=== PATIENT | male | born 1995 | race African-American/Black ===

== ENCOUNTER 2024-10-02 08:26 | Emergency (ER) | payer MEDICAID ==
[~2024-10-02] VITALS: Ht 170.2 cm; Wt 73.5 kg
[2024-10-02 08:58] VITALS: BP 143/95; PULSE 97; RESP 16; TEMP 98.5; O2SAT 98
[2024-10-02] MEDS ORDERED: ACET-1304 PO (11:26)
[2024-10-02] MEDS ORDERED: AUG875T PO (11:26)
[2024-10-02] MEDS ORDERED: IBUP-1456 PO (11:26)
[2024-10-02] MEDS: LIDOCAINE VISCOUS 2% 15ML UD PO ONE (11:32)
[2024-10-02] MEDS: PENICILLIN G BENZ 1,200,000 UNITS/2 ML SYRG IM ONE (11:32)
[2024-10-02] MEDS: IBUPROFEN 800 MG TAB PO ONE (11:32)
--- NOTE | 2024-10-02 11:55 | ED.PDOC ---
History of Present Illness HPI Comments 29 y/o M presents with c/o throat pain for the past 3x days today. Patient also reports subjective fever today. He reports similar symptoms in the past, treated with antibiotics which resolved the issue. He denies having any difficulty breathing or swallowing, cough, congestion, nausea, vomiting, chills, or other associated symptoms or modifiers at this time. Chief Complaint: Sore Throat Time Seen by MD: 10:30 Reviewed Notes: Nurses Notes, Medications, Allergies Allergies: Coded Allergies: NO KNOWN ALLERGIES (Unverified , 10/02/24) Home Meds Active Scripts Acetaminophen (Tylenol Extra Strength) 500 Mg Tab, 1000 MG PO Q6HP PRN, #30 TAB prn fever or pain Prov:MAIA SAWANT MD 10/02/24 Ibuprofen (Ibuprofen) 800 Mg Tab, 1 TAB PO Q8HP PRN, #30 TAB 1 Refill prn fever or pain Prov:MAIA SAWANT MD 10/02/24 Amoxicillin & Pot Clavulanate (AUGMENTIN TABLET) 875 Mg Tb, 875 MG PO BID for 10 Days, #20 TAB Prov:MAIA SAWANT MD 10/02/24 Information Source: Patient Mode of Arrival: Ambulatory Severity: Moderate Timing: Days Duration: Since onset Prehospital treatment: None Past Medical History PAST MEDICAL HISTORY: Denies Surgical History: Denies all surgeries Family History Family History: Unknown Social History Smoker: Non-Smoker Alcohol: Denies ETOH Use Drugs: Denies Drug Use Lives In: Home EENTM: reports: throat pain All Other Systems: Reviewed and Negative (negative unless otherwise stated above or in HPI) Physical Exam General Appearance: No Apparent Distress HEENT: Pharyngeal Erythema, Other (Tonsillar erythema and edema. No exudate or uvular deviation) Neck: Full Range of Motion, Normal Inspection Respiratory: Lungs Clear, No Accessory Muscle Use, No Respiratory Distress, Normal Breath Sounds Cardiovascular: No Edema, No JVD, Regular Rate/Rhythm Breast Exam: Deferred Gastrointestinal: Non Tender, Soft Genitalia: Deferred Pelvic: Deferred Rectal: Deferred Extremities: Normal inspection, Normal range of motion, No pedal edema Neurologic: Alert (Oriented x4), Normal Affect, Normal Mood, Other (Ambulatory without difficulty. No gross focal deficit.) Cerebellar Function: NOT DONE Reflexes: NOT DONE Skin: Dry, Normal Color, Warm Lymphatic: NOT DONE Was a procedure done? Was a procedure done?: No Differential Dx Considerations may include: viral syndrome, pharyngitis, sinuitis, tonsillitis, laryngitis, among others X-Ray, Labs, Meds, VS Vital Signs Date Time Temp Pulse Resp B/P (MAP) Pulse Ox O2 Delivery O2 Flow Rate FiO2 10/02/24 08:58 97 16 98 Room Air 10/02/24 08:58 98.5 97 16 143/95 (111) 98 98.5 10/02/24 08:36 98.5 97 16 143/95 (111) 98 Current Medications Medications (Trade) Dose Ordered Sig/Raf Route Start Time Stop Time Status Last Admin Penicillin G Benzathine (Bicillin L-A) 1,200,000 units ONCE ONCE IM 10/02/24 11:30 10/02/24 11:31 DC 10/02/24 11:32 Ibuprofen (Motrin Tablet) 800 mg ONCE ONCE PO 10/02/24 11:30 10/02/24 11:31 DC 10/02/24 11:32 Lidocaine HCl (Xylocaine 2% Viscous) 10 ml ONCE ONCE PO 10/02/24 11:30 10/02/24 11:31 DC 10/02/24 11:32 X-Ray, Labs, Meds, VS Comment 29-year-old male with no significant past medical history complaining of sore throat Vitals remarkable for BP 143/95 Exam remarkable for pharyngeal and tonsillar erythema with mild edema. No exudate or uvular deviation Patient treated with the following in the ED: Bicillin LA 1.2 million units IM, ibuprofen 800 mg p.o., viscous lidocaine 10 mL p.o. On re-evaluation, patient stated pain had improved. Vitals were stable, no respiratory distress. Patient appears stable for outpatient treatment and close follow up with primary physician. Rx Augmentin, ibuprofen Time of 1ST Reevaluation: 11:00 Reevaluation 1ST: Unchanged Patient Education/Counseling: Diagnosis, Treatment Family Education/Counseling: No Family Present Additional Information The following tests were ordered, and results were reviewed by me: PHA - lidocaine, ibuprofen, penicillin I discussed treatments and results with medical personnel: patient Departure 1 Departure Time of Disposition: 13:50 Impression: Primary Impression: Pharyngitis Qualified Codes: J02.9 - Acute pharyngitis, unspecified Disposition: HOME / SELF CARE / HOMELESS Condition: Stable Additional Instructions: Follow up with your primary doctor in 1-2 days. e-Prescriptions Acetaminophen (Tylenol Extra Strength) 500 Mg Tab 1000 MG PO Q6HP PRN, #30 TAB prn fever or pain Prov: MAIA SAWANT MD 10/02/24 Ibuprofen (Ibuprofen) 800 Mg Tab 1 TAB PO Q8HP PRN, #30 TAB 1 Refill prn fever or pain Prov: MAIA SAWANT MD 10/02/24 Amoxicillin & Pot Clavulanate (AUGMENTIN TABLET) 875 Mg Tb 875 MG PO BID for 10 Days, #20 TAB Prov: MAIA SAWANT MD 10/02/24 Discharged With: Self Critical Care Note Critical Care Time?: No Stability Stability form required: No Heart Score Heart Score: Heart Score Response (Comments) Value History N/A 0 EKG N/A 0 Age N/A 0 Risk Factors N/A 0 Troponin N/A 0 Total 0 I personally scribed for MAIA SAWANT MD ([email or web address]) on 10/02/24 at 11:55. Electronically submitted by Selvin Cochran ([email or web address]). MAIA SAWANT MD Oct 02, 2024 11:55
== END 2024-10-02 13:18 | disposition home or self-care (01) ==
LOC: ER 08:26
DX: J02.9 Acute pharyngitis, unspecified (principal)
CPT/HCPCS: 96372; 99283; J0561